=== PATIENT | female | born 1955 | race Caucasian/White ===

== ENCOUNTER 2024-01-18 00:01 | Emergency (ER) | payer MEDICARE ==
[~2024-01-18] VITALS: Ht 165.1 cm; Wt 46.3 kg
[2024-01-18] MEDS ORDERED: Ondansetron Hydrochloride 4 MG TAB SL ONE (00:15)
[2024-01-18] MEDS ORDERED: MORPHINE Sulfate 2 MG/ML SYR IM ONE ×2 (00:15→04:00)
[2024-01-18] MEDS ORDERED: METOPROLOL SUCC50 M1 PO (03:53)
[2024-01-18] MEDS ORDERED: ONDANSETRON HYDR4 MG PO (03:54)
[2024-01-18] MEDS ORDERED: MORPHINE SULFAT15 MG PO (03:54)
[2024-01-18] MEDS ORDERED: ELIQUIS5 M1 PO (03:55)
[2024-01-18] MEDS ORDERED: PROCHLORPERAZIN10 MG PO (03:55)
[2024-01-18] MEDS ORDERED: CALCIUM 600 MG1 EAC6 PO (03:56)
[2024-01-18] MEDS ORDERED: diphenhydrAMINE hydrochloride 50 MG/ML VIAL IV ONE (06:35)
[2024-01-18] MEDS ORDERED: SODIUM CHLORIDE 0.9% 500 ML IV ONE (06:35)
[2024-01-18] MEDS ORDERED: Metoclopramide Hydrochloride 10 MG/2 ML VIAL IV ONE (06:35)
[2024-01-18] MEDS ORDERED: Ketorolac Tromethamine 30 MG/ML VIAL IV ONE (06:35)
[2024-01-18] MEDS ORDERED: MORPHINE Sulfate 2 MG/ML SYR IV ONE (08:45)
[2024-01-18] MEDS ORDERED: MORPHINE Sulfate 2 MG/ML SYR IV PRN (09:05)
[2024-01-18] MEDS ORDERED: Ondansetron Hydrochloride 4 MG/2 ML VIAL IV PRN (09:05)
[2024-01-18 09:26] LABS: BASO # 0.1 10*3/uL (0.0-0.1); BASO % 0.9 % (0.0-1.0); EOS % 0.5 % (1.0-4.0); HEMATOCRIT 45.2 % (37.0-47.0); MEAN CELL VOLUME 90.4 fl (81.0-99.0); MEAN CORPUSCULAR HGB 32.4 pg (27.0-31.0); MEAN CORPUSCULAR HGB CONC 35.8 g/dl (33.0-37.0); MEAN PLATELET VOLUME 10.2 fl (9.6-12.3); MONO # 1.1 10*3/uL (0.1-1.0); MONO % 17.6 % (3.0-9.0); NEUT # 4.1 10*3/uL (2.3-7.9); NEUT % 63.4 % (47.0-73.0); PLATELET COUNT AUTOMATED 336 10*3/uL (130-400); RED CELL DISTRI WIDTH 12.6 % (0-14.5); WHITE BLOOD COUNT 6.5 10*3/uL (4.8-10.8)
[2024-01-18 09:49] LABS: BUN 10 mg/dl (9-23); CHLORIDE 92 mmol/L (98-107); POTASSIUM 4.2 mmol/L (3.4-5.1)
[2024-01-19] MEDS ORDERED: METOPROLOL SUCCINATE XR 50 MG TAB PO SCH (10:00)
== END 2024-01-18 17:22 | disposition short-term general hospital (02) ==
LOC: ED 00:01
PROVIDERS: Student in an Organized Health Care Education/Training Program
DX: S72.142A Displaced intertrochanteric fracture of left femur, initial encounter for closed fracture (principal); D75.1 Secondary polycythemia; E87.1 Hypo-osmolality and hyponatremia; E87.8 Other disorders of electrolyte and fluid balance, not elsewhere classified; K74.60 Unspecified cirrhosis of liver; J44.9 Chronic obstructive pulmonary disease, unspecified; C34.90 Malignant neoplasm of unspecified part of unspecified bronchus or lung; Z95.828 Presence of other vascular implants and grafts; Z99.81 Dependence on supplemental oxygen; I10 Essential (primary) hypertension; I48.91 Unspecified atrial fibrillation; W19.XXXA Unspecified fall, initial encounter; Y93.89 Activity, other specified; Y92.89 Other specified places as the place of occurrence of the external cause; Y99.8 Other external cause status